=== PATIENT | female | born 1940 | race Caucasian/White ===

== ENCOUNTER 2022-09-17 14:49 | Emergency (ER) | payer MEDICARE, BC ==
[2022-09-17] MEDS ORDERED: Dextrose 5%-Lactated Ringers 1,000 ML IV SCH (15:45)
[2022-09-17 16:30] LABS: ESTIMATED GFR 92 mL/min (>60)
== END 2022-09-17 17:53 | disposition home or self-care (01) ==
LOC: JD.ED 14:49
DX: K92.1 Melena (principal); D64.9 Anemia, unspecified; E78.00 Pure hypercholesterolemia, unspecified; K21.9 Gastro-esophageal reflux disease without esophagitis; M06.9 Rheumatoid arthritis, unspecified; E03.9 Hypothyroidism, unspecified; Z88.0 Allergy status to penicillin; Z88.5 Allergy status to narcotic agent; Z79.82 Long term (current) use of aspirin; Z79.899 Other long term (current) drug therapy
CPT/HCPCS: 36415; 74018; 80053; 81001; 83880; 85025; 85610; 85730; 86140; 86850; 86900; 86901; 96360; 96361; 99285; J7121

== ENCOUNTER 2023-10-10 16:48 | Inpatient (IN) | payer MEDICARE, BC ==
[2023-10-10] MEDS: Acetaminophen 325 MG Tab PO PRN (18:08)
[2023-10-10] MEDS ORDERED: HYDROmorphone 0.5 MG/0.5 ML Syringe IVPUSH ONE (19:04)
[2023-10-10] MEDS ORDERED: Metoclopramide 10 MG/2 ML SDV IVPUSH ONE (19:04)
[2023-10-10 20:03] LABS: BASOPHILS PERCENT AUTO 0.2 % (0.0-1.0); EOSINOPHILS PERCENT AUTO 0.1 % (0.0-6.0); HEMATOCRIT 42.8 % (37.0-47.0); HEMOGLOBIN 13.9 gm/dl (12.0-16.0); IMMATURE GRAN ABSOLUTE AUTO 0.12 K/mm3 (0.00-0.05); IMMATURE GRAN PERCENT AUTO 0.8 % (0.0-0.4); LYMPHOCYTES ABSOLUTE AUTO 0.9 K/mm3 (1.0-4.8); LYMPHOCYTES PERCENT AUTO 6.2 % (24.0-44.0); MEAN CORPUSCULAR HGB CONC 32.5 g/dl (32.0-36.0); MEAN CORPUSCULAR VOLUME 89.4 fl (83.0-99.0); MEAN PLATELET VOLUME 9.6 fl (9.4-12.3); MONOCYTES ABSOLUTE AUTO 1.5 K/mm3 (0.0-0.8); MONOCYTES PERCENT AUTO 10.5 % (0.0-8.0); NEUTROPHILS ABSOLUTE AUTO 11.8 K/mm3 (1.8-7.7); NEUTROPHILS PERCENT AUTO 82.2 % (41.0-71.0); PLATELET COUNT,PLT 239 K/mm3 (150-400); RED BLOOD CELL COUNT 4.79 M/mm3 (4.10-5.30); WHITE BLOOD CELL COUNT,WBC 14.41 K/mm3 (3.9-11.3)
[2023-10-10] MEDS: Dextrose 5%-0.9% NaCl 1,000 ML IV SCH (20:16)
[2023-10-10 20:22] LABS: INR 0.98; PROTHROMBIN TIME 10.5 SECONDS (9.7-12.0)
[2023-10-10 20:23] LABS: PTT,PARTIAL THROMBOPLSTIN TIME 25.6 SECONDS (21.7-31.4)
[2023-10-10 20:34] LABS: A/G RATIO 0.8 (1-2); ALBUMIN 3.3 g/dl (3.4-5.0); ANION GAP 14.9 (5-15); BUN/CREATININE RATIO 22.9 (14-18); C-REACTIVE PROTEIN 4.8 mg/dL (<1.0); CREATININE 0.7 mg/dL (0.55-1.02); EST CRCL DRUG DOSING (CG) 55.01 mL/min; MAGNESIUM 1.7 mg/dL (1.8-2.4); POTASSIUM,K 3.9 mEq/L (3.5-5.1); PROTEIN TOTAL,TP 7.4 g/dl (6.4-8.2)
[2023-10-10] MEDS ORDERED: Albuterol 0.083% 2.5 MG/3 ML Neb Soln NEB PRN (23:18)
[2023-10-10] MEDS ORDERED: LORazepam 2 MG/ML SDV IVPUSH PRN (23:20)
[2023-10-10] MEDS ORDERED: Metoclopramide 10 MG/2 ML SDV IVPUSH PRN (23:20)
[2023-10-10] MEDS ORDERED: HYDROmorphone 0.5 MG/0.5 ML Syringe IVPUSH PRN (23:22)
[2023-10-11] MEDS ORDERED: Metoclopramide 10 MG/2 ML SDV IVPUSH PRN (01:00)
[2023-10-11] MEDS: Acetaminophen 325 MG Tab PO PRN ×2 (05:04→16:37)
[2023-10-11 05:44] LABS: APPEARANCE,URINE SLT CLOUDY (Clear); BILIRUBIN,URINE NEGATIVE (Negative); COLOR,URINE YELLOW (Yellow); GLUCOSE,URINE NEGATIVE (Negative); KETONES,URINE 1+ (Negative); LEUKOCYTE ESTERASE,URINE TRACE (Negative); NITRITE,URINE POSITIVE (Negative); OCCULT BLOOD,URINE 3+ (Negative); PH,URINE 5.5 (5.0-8.0); PROTEIN,URINE 1+ (Negative); UROBILINOGEN,URINE 0.2 (0.2-1.0)
[2023-10-11 06:03] LABS: BACTERIA,URINE MANY /hpf (FEW); MUCUS,URINE NOT SEEN /hpf (FEW); WBC CLUMPS,URINE FEW /hpf (NOT SEEN)
[2023-10-11] MEDS ORDERED: cefTRIAXone 1 GM in Sodium Chloride 0.9% 100 ML IV ONE (06:38)
[2023-10-11] MEDS: Dextrose 5%-0.9% NaCl 1,000 ML IV SCH (09:51)
[2023-10-11] MEDS ORDERED: Morphine 2 MG/ML SYRINGE IVPUSH PRN (10:18)
[2023-10-11] MEDS ORDERED: Ondansetron 4 MG Tab.DIS PO PRN (10:18)
[2023-10-11] MEDS ORDERED: Ketorolac 15 MG/ML SDV IVPUSH PRN (10:18)
[2023-10-11] MEDS ORDERED: Docusate Sodium 100 MG Cap PO PRN (10:18)
[2023-10-11] MEDS ORDERED: Lactated Ringers 1,000 ML IV SCH (10:30)
[2023-10-11] MEDS: Heparin Sodium 5,000 Units/ML Vial SUBCUT SCH ×3 (11:50→22:35)
[2023-10-11] MEDS: Sodium Chloride 0.9% 1,000 ML IV SCH (11:51)
[2023-10-11] MEDS ORDERED: Furosemide 20 MG Tab PO PRN (19:51)
[2023-10-11] MEDS ORDERED: Zolpidem 5 MG Tab PO PRN (21:00)
[2023-10-11] MEDS: Latanoprost 0.005% Ophth Soln 2.5 ML Bottle EYEBOTH SCH (21:08)
[2023-10-11] MEDS: Famotidine 20 MG Tab PO SCH (21:08)
[2023-10-11] MEDS: traZODone 50 MG Tab PO SCH (21:08)
[2023-10-12] MEDS: Sodium Chloride 0.9% 1,000 ML IV SCH ×2 (01:03→15:36)
[2023-10-12] MEDS: cefTRIAXone 1 GM in Sodium Chloride 0.9% 100 ML IV SCH (05:59)
[2023-10-12] MEDS: Levothyroxine 75 MCG Tab PO SCH (05:59)
[2023-10-12] MEDS ORDERED: cefTRIAXone 1 GM in Sodium Chloride 0.9% 100 ML IV SCH (07:00)
[2023-10-12] MEDS ORDERED: Non-Formulary Medication 1 Each (Oxybutynin Chloride [Oxybutynin Chloride Er] 10 MG Tab.Er PO SCH (09:00)
[2023-10-12] MEDS: Aspirin 81 MG Tab.Chew PO SCH (09:01)
[2023-10-12] MEDS: Multivitamins with Minerals/Folic Acid/Lutein/Zeaxanth Tab PO SCH (09:01)
[2023-10-12] MEDS: Famotidine 20 MG Tab PO SCH ×2 (09:02→21:10)
[2023-10-12] MEDS: Cholecalciferol (Vitamin D3) 5,000 UNIT Cap PO SCH (09:02)
[2023-10-12] MEDS: Pravastatin 20 MG Tab PO SCH (09:02)
[2023-10-12] MEDS: Docusate Sodium 100 MG Cap PO SCH (09:03)
[2023-10-12 09:30] LABS: HEMATOCRIT 35.7 % (37.0-47.0); MEAN CORPUSCULAR HEMOGLOBIN 28.6 pg (28.0-32.0); MEAN CORPUSCULAR HGB CONC 32.2 g/dl (32.0-36.0); MEAN CORPUSCULAR VOLUME 88.8 fl (83.0-99.0); MEAN PLATELET VOLUME 10.6 fl (9.4-12.3); RED BLOOD CELL COUNT 4.02 M/mm3 (4.10-5.30); WHITE BLOOD CELL COUNT,WBC 8.16 K/mm3 (3.9-11.3)
[2023-10-12 09:36] LABS: HEMOGLOBIN 11.5 gm/dl (12.0-16.0); PLATELET COUNT,PLT 152 K/mm3 (150-400)
[2023-10-12 10:20] LABS: ANION GAP 16.6 (5-15); CALCIUM 8.4 mg/dL (8.5-10.1); CREATININE 0.5 mg/dL (0.55-1.02); EST CRCL DRUG DOSING (CG) 78.22 mL/min; MAGNESIUM 1.7 mg/dL (1.8-2.4); POTASSIUM,K 3.6 mEq/L (3.5-5.1)
[2023-10-12] MEDS: Heparin Sodium 5,000 Units/ML Vial SUBCUT SCH ×2 (10:32→22:58)
[2023-10-12] MEDS ORDERED: Melatonin 3 MG Tab PO PRN (21:00)
[2023-10-12] MEDS: traZODone 50 MG Tab PO SCH (21:10)
[2023-10-12] MEDS: Latanoprost 0.005% Ophth Soln 2.5 ML Bottle EYEBOTH SCH (21:10)
[2023-10-13] MEDS: cefTRIAXone 1 GM in Sodium Chloride 0.9% 100 ML IV SCH (06:05)
[2023-10-13] MEDS: Levothyroxine 75 MCG Tab PO SCH (06:05)
[2023-10-13] MEDS: Docusate Sodium 100 MG Cap PO SCH (08:25)
[2023-10-13] MEDS: Famotidine 20 MG Tab PO SCH ×2 (08:25→21:12)
[2023-10-13] MEDS: Cholecalciferol (Vitamin D3) 5,000 UNIT Cap PO SCH (08:25)
[2023-10-13] MEDS: Aspirin 81 MG Tab.Chew PO SCH (08:26)
[2023-10-13] MEDS: Pravastatin 20 MG Tab PO SCH (08:26)
[2023-10-13] MEDS: Multivitamins with Minerals/Folic Acid/Lutein/Zeaxanth Tab PO SCH (08:26)
[2023-10-13] MEDS: Sodium Chloride 0.9% 1,000 ML IV SCH (11:43)
[2023-10-13] MEDS: Heparin Sodium 5,000 Units/ML Vial SUBCUT SCH ×3 (11:43→23:19)
[2023-10-13] MEDS: Latanoprost 0.005% Ophth Soln 2.5 ML Bottle EYEBOTH SCH (21:12)
[2023-10-13] MEDS: traZODone 50 MG Tab PO SCH (21:12)
[2023-10-13] MEDS: Acetaminophen 325 MG Tab PO PRN (21:12)
[2023-10-14] MEDS: Heparin Sodium 5,000 Units/ML Vial SUBCUT SCH ×2 (00:10→11:51)
[2023-10-14] MEDS: Sodium Chloride 0.9% 1,000 ML IV SCH (03:21)
[2023-10-14] MEDS: Levothyroxine 75 MCG Tab PO SCH (06:13)
[2023-10-14] MEDS: Acetaminophen 325 MG Tab PO PRN ×2 (06:14→20:39)
[2023-10-14] MEDS: Famotidine 20 MG Tab PO SCH ×2 (08:55→20:39)
[2023-10-14] MEDS: Pravastatin 20 MG Tab PO SCH (08:55)
[2023-10-14] MEDS: Aspirin 81 MG Tab.Chew PO SCH (08:55)
[2023-10-14] MEDS: Multivitamins with Minerals/Folic Acid/Lutein/Zeaxanth Tab PO SCH (08:55)
[2023-10-14] MEDS: Docusate Sodium 100 MG Cap PO SCH (08:56)
[2023-10-14] MEDS: Cholecalciferol (Vitamin D3) 5,000 UNIT Cap PO SCH (08:56)
[2023-10-14] MEDS: traZODone 50 MG Tab PO SCH (20:39)
[2023-10-14] MEDS: Latanoprost 0.005% Ophth Soln 2.5 ML Bottle EYEBOTH SCH (21:00)
[2023-10-14] MEDS ORDERED: Magnesium Hydroxide 400 MG/5 ML Susp 30 ML Cup PO ONE (21:00)
[2023-10-15] MEDS: Levothyroxine 75 MCG Tab PO SCH ×2 (04:22→07:53)
[2023-10-15] MEDS: Acetaminophen 325 MG Tab PO PRN ×3 (04:22→15:42)
[2023-10-15 05:46] LABS: HEMATOCRIT 31.1 % (37.0-47.0); HEMOGLOBIN 10.1 gm/dl (12.0-16.0); MEAN CORPUSCULAR HEMOGLOBIN 29.4 pg (28.0-32.0); MEAN CORPUSCULAR HGB CONC 32.5 g/dl (32.0-36.0); MEAN CORPUSCULAR VOLUME 90.7 fl (83.0-99.0); RED BLOOD CELL COUNT 3.43 M/mm3 (4.10-5.30); WHITE BLOOD CELL COUNT,WBC 8.44 K/mm3 (3.9-11.3)
[2023-10-15 05:56] LABS: PLATELET COUNT,PLT 238 K/mm3 (150-400)
[2023-10-15 05:59] LABS: ANION GAP 10.8 (5-15); CALCIUM 8.4 mg/dL (8.5-10.1); CREATININE 0.5 mg/dL (0.55-1.02); EST CRCL DRUG DOSING (CG) 77.22 mL/min; MAGNESIUM 2.2 mg/dL (1.8-2.4); POTASSIUM,K 3.8 mEq/L (3.5-5.1)
[2023-10-15] MEDS: Aspirin 81 MG Tab.Chew PO SCH (10:04)
[2023-10-15] MEDS: Cholecalciferol (Vitamin D3) 5,000 UNIT Cap PO SCH (10:04)
[2023-10-15] MEDS: Famotidine 20 MG Tab PO SCH ×2 (10:04→21:40)
[2023-10-15] MEDS: Docusate Sodium 100 MG Cap PO SCH (10:04)
[2023-10-15] MEDS: Pravastatin 20 MG Tab PO SCH (10:04)
[2023-10-15] MEDS: Multivitamins with Minerals/Folic Acid/Lutein/Zeaxanth Tab PO SCH (10:05)
[2023-10-15] MEDS: Heparin Sodium 5,000 Units/ML Vial SUBCUT SCH ×3 (10:06→23:00)
[2023-10-15] MEDS: Latanoprost 0.005% Ophth Soln 2.5 ML Bottle EYEBOTH SCH (21:39)
[2023-10-15] MEDS: traZODone 50 MG Tab PO SCH (21:40)
[2023-10-16] MEDS: Levothyroxine 75 MCG Tab PO SCH (05:31)
[2023-10-16] MEDS: Acetaminophen 325 MG Tab PO PRN ×2 (05:31→12:31)
[2023-10-16] MEDS: Pravastatin 20 MG Tab PO SCH (09:06)
[2023-10-16] MEDS: Aspirin 81 MG Tab.Chew PO SCH (09:06)
[2023-10-16] MEDS: Famotidine 20 MG Tab PO SCH (09:06)
[2023-10-16] MEDS: Cholecalciferol (Vitamin D3) 5,000 UNIT Cap PO SCH (09:06)
[2023-10-16] MEDS: Docusate Sodium 100 MG Cap PO SCH (09:07)
[2023-10-16] MEDS: Multivitamins with Minerals/Folic Acid/Lutein/Zeaxanth Tab PO SCH (09:07)
[2023-10-16] MEDS: Heparin Sodium 5,000 Units/ML Vial SUBCUT SCH (10:09)
== END 2023-10-16 13:10 | DRG 563 ==
LOC: JD.ED 16:48 → UNDOADMOB 22:23 → JD.MS 22:23
PROVIDERS: ADMIT Internal Medicine; ATTEND Internal Medicine
DX: S42.491A Other displaced fracture of lower end of right humerus, initial encounter for closed fracture (principal); S42.401A Unspecified fracture of lower end of right humerus, initial encounter for closed fracture; N30.00 Acute cystitis without hematuria; E03.9 Hypothyroidism, unspecified; M81.0 Age-related osteoporosis without current pathological fracture; K21.9 Gastro-esophageal reflux disease without esophagitis; M06.9 Rheumatoid arthritis, unspecified; W19.XXXA Unspecified fall, initial encounter; E78.00 Pure hypercholesterolemia, unspecified; E83.42 Hypomagnesemia; R79.89 Other specified abnormal findings of blood chemistry; R53.81 Other malaise; M25.462 Effusion, left knee; M25.461 Effusion, right knee; Z88.0 Allergy status to penicillin; Z88.5 Allergy status to narcotic agent; Z90.49 Acquired absence of other specified parts of digestive tract; Z11.52 Encounter for screening for COVID-19; Z96.641 Presence of right artificial hip joint; Z96.651 Presence of right artificial knee joint; Z96.652 Presence of left artificial knee joint; Z79.890 Hormone replacement therapy; Z79.82 Long term (current) use of aspirin; Z79.899 Other long term (current) drug therapy; W01.0XXA Fall on same level from slipping, tripping and stumbling without subsequent striking against object, initial encounter; Y92.009 Unspecified place in unspecified non-institutional (private) residence as the place of occurrence of the external cause; R06.02 Shortness of breath
CPT/HCPCS: 29125; 36415 ×2; 71045; 73060 ×2; 73070; 73080; 73200; 73562; 80053; 81001; 83735; 83880; 84484 ×2; 85025; 85610; 85730; 86140; 86850; 86900; 86901; 87086; 93005; 96361 ×2; 96365; 96375; 99285; A9270 ×2; C1758; J0696; J1170; J2765; J3490; J7042 ×2; 80048; 85027; 93010; 93307; 97110-GP; 97162-GP; 97530-GP; 99222; 99231; 99239; J1644; J1885; J3475; J7030; U0002

== ENCOUNTER 2024-03-24 09:52 | Inpatient (IN) | payer MEDICARE, BC ==
[2024-03-24] MEDS: Sodium Chloride 0.9% 1,000 ML IV ONE ×2 (10:02→11:28)
[2024-03-24] MEDS: Sodium Chloride 0.9% 10 ML Syringe FLUSH PRN (10:02)
[2024-03-24 10:11] LABS: BICARBONATE,ARTERIAL 17.2 meq/L (22.0-26.0); O2 SATURATION ARTERIAL 96.4 % (96.0-97.0); PCO2 ARTERIAL 25.5 mmHg (35.0-45.0)
[2024-03-24 10:35] LABS: HEMATOCRIT 45.8 % (37.0-47.0); MEAN CORPUSCULAR HEMOGLOBIN 28.3 pg (28.0-32.0); MEAN CORPUSCULAR HGB CONC 32.1 g/dl (32.0-36.0); MEAN CORPUSCULAR VOLUME 88.2 fl (83.0-99.0); MEAN PLATELET VOLUME 10.6 fl (9.4-12.3); PLATELET COUNT,PLT 188 K/mm3 (150-400); RED BLOOD CELL COUNT 5.19 M/mm3 (4.10-5.30); WHITE BLOOD CELL COUNT,WBC 21.71 K/mm3 (3.9-11.3)
[2024-03-24] MEDS: cefTRIAXone 2 GM in Sodium Chloride 0.9% 100 ML IV ONE (10:39)
[2024-03-24 10:40] LABS: HEMOGLOBIN 14.7 gm/dl (12.0-16.0)
[2024-03-24] MEDS: Albuterol/Ipratropium 3.0-0.5 MG/3 ML Neb Soln NEB ONE (10:44)
[2024-03-24 10:51] LABS: INR 1.2; PROTHROMBIN TIME 12.7 SECONDS (9.7-12.0)
[2024-03-24 10:53] LABS: APPEARANCE,URINE CLOUDY (Clear); BILIRUBIN,URINE NEGATIVE (Negative); COLOR,URINE YELLOW (Yellow); GLUCOSE,URINE NEGATIVE (Negative); KETONES,URINE NEGATIVE (Negative); LEUKOCYTE ESTERASE,URINE 1+ (Negative); NITRITE,URINE NEGATIVE (Negative); OCCULT BLOOD,URINE 2+ (Negative); PH,URINE 8.5 (5.0-8.0); PROTEIN,URINE 2+ (Negative)
[2024-03-24 11:05] LABS: A/G RATIO 0.7 (1-2); ALANINE AMINOTRANSFERASE,ALT 34 U/L (14-59); ALBUMIN 2.8 g/dl (3.4-5.0); ALKALINE PHOSPHATASE 166 U/L (46-116); ANION GAP 20.8 (5-15); ASPARTATE AMNIOTRANSFERASE,AST 50 U/L (15-37); BILIRUBIN TOTAL 1.2 mg/dL (0.2-1.0); BLOOD UREA NITROGEN,BUN 18 mg/dL (7-18); C-REACTIVE PROTEIN 8.75 mg/dL (<0.30); CALCIUM 9.3 mg/dL (8.5-10.1); CARBON DIOXIDE,CO2 19 mEq/L (21-32); CHLORIDE,CL 106 mEq/L (98-107); ESTIMATED GFR 55 mL/min (>60); GLUCOSE RANDOM 109 mg/dL (70-99); LIPASE 13 U/L (16-77); POTASSIUM,K 2.8 mEq/L (3.5-5.1); PROTEIN TOTAL,TP 6.7 g/dl (6.4-8.2); SODIUM,NA 143 mEq/L (136-145)
[2024-03-24 11:06] LABS: LACTIC ACID 3.7 mmol/L (0.4-2.0); TROPONIN I HIGH SENSITIVITY 7970 pg/mL (<=51)
[2024-03-24 11:12] LABS: BACTERIA,URINE MANY /hpf (FEW); MUCUS,URINE FEW /hpf (FEW); RBC,URINE 30-40 /hpf (0-5); WBC,URINE 50-75 /hpf (0-5)
[2024-03-24 11:15] LABS: BAND PERCENT MAN 14 % (0-10); BASOPHILS PERCENT MAN 0 (0.1-1.2); EOSINOPHILS PERCENT MAN 0 % (0.7-5.8); LYMPHOCYTES % ATYPICAL MANUAL 0 %; LYMPHOCYTES PERCENT MAN 2 % (20-40); MONOCYTES PERCENT MAN 2 % (2-10)
[2024-03-24 11:16] LABS: PLATELET COUNT ESTIMATE ADEQUATE; TOXIC GRANULATION 1+ SLIGHT
[2024-03-24] MEDS: Potassium Chloride 10 MEQ in Premix Bag 1 BAG IV SCH (12:25)
[2024-03-24] MEDS: VANCOmycin 1.25 GM/250 ML 1.25 GM in Premix Bag 1 BAG IV ONE (12:25)
[2024-03-24] MEDS: Aspirin 81 MG Tab.Chew PO ONE (12:26)
[2024-03-24] MEDS: Heparin Sodium 5,000 Units/ML Vial IVPUSH ONE ×2 (12:26→12:41)
[2024-03-24] MEDS: Heparin Sodium/D5W 25,000 UNITS/500 ML BAG IV SCH (12:42)
[2024-03-24] MEDS ORDERED: Melatonin 3 MG Tab PO PRN (13:03)
[2024-03-24] MEDS ORDERED: Acetaminophen 325 MG Tab PO PRN ×2 (13:03→18:02)
[2024-03-24] MEDS: Lactated Ringers 1,000 ML IV SCH (13:13)
[2024-03-24] MEDS ORDERED: Non-Formulary Medication 1 Each (Acetaminophen 500 MG Tablet) PO PRN (15:26)
[2024-03-24] MEDS: Ketorolac 15 MG/ML SDV IVPUSH PRN (18:15)
[2024-03-24 20:46] LABS: LACTIC ACID 2.3 mmol/L (0.4-2.0)
[2024-03-25] MEDS: traZODone 50 MG Tab PO SCH (01:20)
[2024-03-25 02:28] LABS: BASOPHILS ABSOLUTE AUTO 0.1 K/mm3 (0.0-0.2); BASOPHILS PERCENT AUTO 0.3 % (0.0-1.0); EOSINOPHILS ABSOLUTE AUTO 0.3 K/mm3 (0.0-0.4); EOSINOPHILS PERCENT AUTO 0.6 % (0.0-6.0); HEMATOCRIT 40.5 % (37.0-47.0); HEMOGLOBIN 13.3 gm/dl (12.0-16.0); IMMATURE GRAN ABSOLUTE AUTO 1.82 K/mm3 (0.00-0.05); IMMATURE GRAN PERCENT AUTO 4.4 % (0.0-0.4); LYMPHOCYTES ABSOLUTE AUTO 1.4 K/mm3 (1.0-4.8); LYMPHOCYTES PERCENT AUTO 3.4 % (24.0-44.0); MEAN CORPUSCULAR HEMOGLOBIN 29.4 pg (28.0-32.0); MEAN CORPUSCULAR HGB CONC 32.8 g/dl (32.0-36.0); MEAN CORPUSCULAR VOLUME 89.6 fl (83.0-99.0); MEAN PLATELET VOLUME 10.3 fl (9.4-12.3); MONOCYTES ABSOLUTE AUTO 2.3 K/mm3 (0.0-0.8); MONOCYTES PERCENT AUTO 5.5 % (0.0-8.0); NEUTROPHILS ABSOLUTE AUTO 35.8 K/mm3 (1.8-7.7); NEUTROPHILS PERCENT AUTO 85.8 % (41.0-71.0); PLATELET COUNT,PLT 154 K/mm3 (150-400); RED BLOOD CELL COUNT 4.52 M/mm3 (4.10-5.30); WHITE BLOOD CELL COUNT,WBC 41.65 K/mm3 (3.9-11.3)
[2024-03-25 02:49] LABS: A/G RATIO 0.6 (1-2); ALBUMIN 2.2 g/dl (3.4-5.0); ANION GAP 14.4 (5-15); BILIRUBIN TOTAL 0.8 mg/dL (0.2-1.0); BUN/CREATININE RATIO 25.7 (14-18); CALCIUM 8.5 mg/dL (8.5-10.1); CREATININE 0.7 mg/dL (0.55-1.02); EST CRCL DRUG DOSING (CG) 49.98 mL/min; POTASSIUM,K 3.4 mEq/L (3.5-5.1); PROTEIN TOTAL,TP 5.8 g/dl (6.4-8.2)
[2024-03-25 03:41] LABS: SLIDE REVIEW ABNORMAL SMEAR
[2024-03-25] MEDS: Multivitamins with Minerals/Folic Acid/Lutein/Zeaxanth Tab PO SCH (09:39)
[2024-03-25] MEDS: Levothyroxine 75 MCG Tab PO SCH (09:39)
[2024-03-25] MEDS: Polyethylene Glycol 3350 Powder 17 GM Packet PO SCH (09:40)
[2024-03-25] MEDS: cefTRIAXone 2 GM in Sodium Chloride 0.9% 100 ML IV SCH (12:47)
[2024-03-25] MEDS: LORazepam 2 MG/ML SDV IVPUSH PRN (13:20)
[2024-03-25] MEDS: Morphine 2 MG/ML SYRINGE IV PRN (14:41)
[2024-03-25] MEDS: Non-Formulary Medication 1 Each (Methenamine Hippurate 1 GM Tablet) PO SCH (21:31)
[2024-03-26] MEDS ORDERED: Scopalamine 1mg/3day Transdermal Patch TRDERM PRN (08:05)
[2024-03-26] MEDS: Glycopyrrolate 0.2 MG/ML SDV IVPUSH PRN (08:19)
[2024-03-26] MEDS: Morphine 4 MG/ML Syringe IVPUSH PRN (08:19)
[2024-03-26] MEDS: LORazepam 2 MG/ML SDV IVPUSH PRN ×2 (09:23→14:30)
[2024-03-26] MEDS ORDERED: LORazepam 0.5 MG Tab PO PRN (14:26)
== END 2024-03-26 21:20 | disposition expired | DRG 871 ==
LOC: JD.ED 09:52 → UNDOADMIN 13:13 → JD.MS 13:13 → JD.ICU 14:28
PROVIDERS: ADMIT Internal Medicine; ATTEND Internal Medicine
PROC: 3E03329 Introduction of Other Anti-infective into Peripheral Vein, Percutaneous Approach (ICD-10-PCS; principal; 2024-03-25)
PROC: 3E033XZ Introduction of Vasopressor into Peripheral Vein, Percutaneous Approach (ICD-10-PCS; 2024-03-25)
DX: A41.9 Sepsis, unspecified organism (principal); I21.4 Non-ST elevation (NSTEMI) myocardial infarction; R65.21 Severe sepsis with septic shock; N30.00 Acute cystitis without hematuria; I46.8 Cardiac arrest due to other underlying condition; F03.C0 Unspecified dementia, severe, without behavioral disturbance, psychotic disturbance, mood disturbance, and anxiety; Z66 Do not resuscitate; Z51.5 Encounter for palliative care; E78.00 Pure hypercholesterolemia, unspecified; K21.9 Gastro-esophageal reflux disease without esophagitis; E03.9 Hypothyroidism, unspecified; M06.9 Rheumatoid arthritis, unspecified; E87.6 Hypokalemia; R57.0 Cardiogenic shock; Z88.0 Allergy status to penicillin; Z88.5 Allergy status to narcotic agent; Z90.49 Acquired absence of other specified parts of digestive tract; Z87.11 Personal history of peptic ulcer disease; Z79.82 Long term (current) use of aspirin; Z79.899 Other long term (current) drug therapy; Z96.659 Presence of unspecified artificial knee joint; Z96.649 Presence of unspecified artificial hip joint; Z79.890 Hormone replacement therapy
CPT/HCPCS: 36415; 36600; 71045; 80053; 81001; 82803; 83605; 83690; 83880; 84484; 85007; 85027; 85610; 86140; 87040 ×2; 87045; 87046 ×3; 87154; 87493 ×2; 87899 ×2; 93005; 94640; 96361; 96365; 96367; 96368; 96375; 99285; A9270; C1758; J0696; J1644 ×2; J3370; J3480; J3490 ×2; J7030 ×2; 85025; 85730; 87077; 87186; 93010; 94760; J1885; J2060; J2270; J7120; J7620-GY